=== PATIENT | female | born 1975 | race Caucasian/White ===

== ENCOUNTER 2016-12-11 19:37 | Emergency (ER) | payer OTHER ==
[~2016-12-11] VITALS: Ht 152.4 cm; Wt 69.8 kg
[~2016-12-11 19:37] MED LIST: ESG PO; FER300 PO; PRILOSEC20 MG PO
[2016-12-11 20:14] VITALS: BP 112/73
== END 2016-12-11 21:37 | disposition left against medical advice (07) ==
LOC: ED 19:37
DX: Z53.21 Procedure and treatment not carried out due to patient leaving prior to being seen by health care provider (principal)